=== PATIENT | female | born 2000 ===

== ENCOUNTER 2020-12-29 08:45 | Inpatient (IN) | payer MEDICAID ==
[~2020-12-29] VITALS: Ht 167.6 cm; Wt 81.8 kg
[2020-12-29] MEDS: LACTATED RINGERS 1,000 ML IV SCH ×2 (09:30→16:18)
[2020-12-29 10:00] VITALS: BP 102/68
[2020-12-29] MEDS ORDERED: D5%-LACTATED RINGERS 1,000 ML IV SCH (10:30)
[2020-12-29] MEDS ORDERED: ONDANSETRON 2MG/ML, 2ML IVPush PRN ×2 (10:30→17:00)
[2020-12-29] MEDS ORDERED: OXYTOCIN 30U/ 0.9% NaCL 500ML 500 ML IV ONE (10:30)
[2020-12-29] MEDS ORDERED: TERBUTALINE 1 MG/ML, 1ML SQ PRN (10:30)
[2020-12-29] MEDS ORDERED: TERBUTALINE 1 MG/ML, 1ML IVPush PRN (10:30)
[2020-12-29] MEDS ORDERED: FENTANYL PF 100 MCG/2ML IV PRN (10:30)
[2020-12-29] MEDS ORDERED: CALCIUM CARBONATE 500 MG TAB.CHEW PO PRN (10:30)
[2020-12-29] MEDS ORDERED: OXYTOCIN 30U/ 0.9% NaCL 500ML 500 ML IV PRN (10:30)
[2020-12-29] MEDS ORDERED: FENTANYL PF 100 MCG/2ML IVPush PRN (10:30)
[2020-12-29] MEDS ORDERED: MISOPROSTOL 25 MCG TABLET VG PRN (10:30)
[2020-12-29] MEDS ORDERED: MISOPROSTOL 25 MCG TABLET ONE (10:44)
[2020-12-29 10:58] LABS: BASOPHILS % (AUTO) 0 % (0-1); EOSINOPHILS % (AUTO) 1 % (1-7); LYMPHOCYTES % (AUTO) 16 % (22-44); MEAN CORPUSCULAR HEMOGLOBIN 33.7 pg (27.0-34.8); MEAN CORPUSCULAR HGB CONC 34.7 g/dL (32.4-35.8); MEAN PLATELET VOLUME 7.5 fL (7.4-10.4); MONOCYTES % (AUTO) 9 % (2-9); NEUTROPHILS % (AUTO) 74 % (42-75); PLATELET COUNT 255 x10^3/uL (130-400); RED BLOOD COUNT 3.96 x10^6/uL (3.82-5.3); RED CELL DISTRIBUTION WIDTH 13.7 % (9.6-15.2)
[2020-12-29 11:02] LABS: MD NO
[2020-12-29] MEDS ORDERED: NEWBORN KIT ONE (11:19)
[2020-12-29] MEDS ORDERED: LIDOCAINE 1%, 20ML ONE (11:19)
[2020-12-29] MEDS ORDERED: OXYTOCIN 30U/ 0.9% NaCL 500ML 500 ML ONE (11:19)
[2020-12-29] MEDS ORDERED: MISOPROSTOL 200 MCG TABLET ONE (11:19)
[2020-12-29] MEDS ORDERED: FENTANYL/BUPIV./NS/PF 250 ML EPIDCONT ONE (16:26)
[2020-12-29] MEDS ORDERED: BUPIVACAINE 0.25% ONE (16:26)
[2020-12-29] MEDS ORDERED: EPHEDRINE 50 MG/ML, 1ML IVPush PRN (17:00)
[2020-12-29] MEDS ORDERED: LACTATED RINGERS 1,000 ML IV SCH (17:00)
[2020-12-29] MEDS ORDERED: NALOXONE 0.4 MG/ML, 1ML IVPush PRN (17:00)
[2020-12-29] MEDS ORDERED: DIPHENHYDRAMINE 50 MG/ML, 1ML IVPush PRN (17:00)
[2020-12-29] MEDS ORDERED: LACTATED RINGERS 1,000 ML IVBOLUS PRN (17:00)
[2020-12-29] MEDS ORDERED: FENTANYL/BUPIV./NS/PF 250 ML EPIDCONT SCH (17:00)
[2020-12-29] MEDS ORDERED: ONDANSETRON 2MG/ML, 2ML ONE (17:32)
[2020-12-29] MEDS ORDERED: ONDANSETRON ODT 4 MG ONE (17:32)
[2020-12-30] MEDS: LACTATED RINGERS 1,000 ML IV SCH (01:30)
[2020-12-30] MEDS ORDERED: MISOPROSTOL 200 MCG TABLET PR PRN (03:00)
[2020-12-30 04:15] VITALS: BP 108/70
[2020-12-30] MEDS: IBUPROFEN 600 MG TABLET PO PRN ×3 (06:53→20:35)
[2020-12-30] MEDS: OXYTOCIN 30U/ 0.9% NaCL 500ML 500 ML IV SCH ×2 (07:00→17:00)
[2020-12-30] MEDS ORDERED: OXYcodone/APAP 5/325MG TABLET PO PRN (07:00)
[2020-12-30] MEDS ORDERED: CALCIUM CARBONATE 500 MG TAB.CHEW PO PRN (07:00)
[2020-12-30 07:21] VITALS: BP 114/73
[2020-12-30] MEDS: DOCUSATE 100 MG CAPSULE PO PRN ×2 (09:58→20:35)
[2020-12-30] MEDS: PRENATAL VIT/IRON/FA 1 EACH TABLET PO SCH (09:58)
[2020-12-30 10:33] LABS: BASOPHILS % (AUTO) 0 % (0-1); EOSINOPHILS % (AUTO) 0 % (1-7); LYMPHOCYTES % (AUTO) 7 % (22-44); MD NO; MEAN CORPUSCULAR HEMOGLOBIN 33.4 pg (27.0-34.8); MEAN CORPUSCULAR HGB CONC 34.5 g/dL (32.4-35.8); MEAN PLATELET VOLUME 7.5 fL (7.4-10.4); MONOCYTES % (AUTO) 8 % (2-9); NEUTROPHILS % (AUTO) 85 % (42-75); PLATELET COUNT 217 x10^3/uL (130-400); RED BLOOD COUNT 3.84 x10^6/uL (3.82-5.3); RED CELL DISTRIBUTION WIDTH 13.7 % (9.6-15.2)
[2020-12-30 12:26] VITALS: BP 110/72
[2020-12-30 14:14] VITALS: BP 110/69
[2020-12-30 16:07] VITALS: BP 103/69
[2020-12-30] MEDS ORDERED: CLINDAMYCIN PMX 600MG/50ML 50 ML IV SCH (19:00)
[2020-12-30] MEDS ORDERED: GENTAMICIN PER PHARMACY MC PRN (19:00)
[2020-12-30] MEDS ORDERED: AMPICILLIN 2 GM in SODIUM CHLORIDE 0.9% 100 ML IV ONE (19:00)
[2020-12-30] MEDS ORDERED: PHARMACOKINETIC MONITORING MC PRN (19:30)
[2020-12-30] MEDS ORDERED: PHARMACOKINETIC CONSULTATION MC ONE (19:30)
[2020-12-30 19:37] LABS: MICROSCOPIC AUTO
[2020-12-30 20:00] VITALS: BP 107/70
[2020-12-30] MEDS ORDERED: GENTAMICIN 140 MG in SODIUM CHLORIDE 0.9% 50 ML IV SCH (20:00)
[2020-12-30] MEDS ORDERED: CEFTRIAXONE PMX 2GM/50ML 50 ML IVPB SCH (20:30)
[2020-12-30] MEDS: ACETAMINOPHEN 325 MG TABLET PO PRN (20:35)
[2020-12-30] MEDS: SODIUM CHLORIDE 0.9% 1,000 ML IV SCH (20:45)
[2020-12-31 00:07] VITALS: BP 93/52
[2020-12-31] MEDS ORDERED: AMPICILLIN 1 GM in SODIUM CHLORIDE 0.9% 100 ML IV SCH (01:00)
[2020-12-31] MEDS: OXYTOCIN 30U/ 0.9% NaCL 500ML 500 ML IV SCH ×2 (03:00→13:00)
[2020-12-31 04:40] VITALS: BP 124/85
[2020-12-31] MEDS: IBUPROFEN 600 MG TABLET PO PRN ×2 (04:49→11:49)
[2020-12-31] MEDS: ACETAMINOPHEN 325 MG TABLET PO PRN ×2 (04:49→11:49)
[2020-12-31] MEDS ORDERED: NITR100C56 PO (06:36)
[2020-12-31 06:59] VITALS: BP 114/75
[2020-12-31] MEDS: PRENATAL VIT/IRON/FA 1 EACH TABLET PO SCH (09:00)
[2020-12-31] MEDS: SODIUM CHLORIDE 0.9% 1,000 ML IV SCH (10:00)
[2020-12-31 12:59] VITALS: BP 111/71
== END 2020-12-31 16:18 | disposition home or self-care (01) | DRG 807 ==
LOC: LDIP 08:45 → 2NW 12-30 03:55
PROVIDERS: ADMIT Obstetrics & Gynecology; ATTEND Obstetrics & Gynecology
PROC: 3E0P7VZ Introduction of Hormone into Female Reproductive, Via Natural or Artificial Opening (ICD-10-PCS; principal; 2020-12-30)
PROC: 10E0XZZ Delivery of Products of Conception, External Approach (ICD-10-PCS; 2020-12-30)
PROC: 3E0R3BZ Introduction of Anesthetic Agent into Spinal Canal, Percutaneous Approach (ICD-10-PCS; 2020-12-30)
PROC: 00HU33Z Insertion of Infusion Device into Spinal Canal, Percutaneous Approach (ICD-10-PCS; 2020-12-30)
DX: O80 Encounter for full-term uncomplicated delivery (principal); Z37.0 Single live birth; Z3A.39 39 weeks gestation of pregnancy; Z88.0 Allergy status to penicillin; Z20.822 Contact with and (suspected) exposure to COVID-19
CPT/HCPCS: 36415; 81001; 85025; 86592; 86762; 86803; 86850; 86900; 87077; 87086; 87186; 87340; 87635; 87806; G0378; J0696; J2405; G0475; J2590; J3010; J7030; J7120